=== PATIENT | male | born 1965 | race Caucasian/White ===

== ENCOUNTER → 2019-05-04 | Outpatient (CLI) | payer BC ==
--- NOTE | 2019-05-04 08:55 | KCIC ---
2 views of the skull 05/03/2019 INDICATION: Pre-MRI exam Discussion: No radiopaque foreign bodies involving the orbits are identified. No other acute osseous of normality is seen. No fluid levels in the sinuses are seen. IMPRESSION: No radiopaque/metallic foreign bodies involving the orbits. Electronically signed by: Rivas Champion MD (05/04/2019 8:51 AM) [id number]
--- NOTE | 2019-05-04 13:51 | KCIC ---
MR of the left shoulder HISTORY: Left shoulder pain, progressing over 6 months. TECHNIQUE: Routine multiplanar sequences are obtained. FINDINGS: Acromioclavicular joint is mildly degenerative. Deep linear articular surface tear of the supraspinatus tendon extends 90% across the rotator cuff attachment measures about 15 mm AP diameter. There is very small linear component which also extends to the bursal layer compatible with a nonretracted full-thickness component, series 7, image 9. More generalized rotator cuff tendinosis. Subscapularis tendon appears intact. No significant subdeltoid bursal fluid. No significant glenohumeral joint effusion. Small tear of the posterosuperior labrum. Biceps tendon is intact. Mild glenohumeral joint degenerative change. No acute fracture. No aggressive bone destruction. No acute soft tissue abnormality. Small axillary lymph node is incidentally noted, measures 12 mm short axis, most likely reactive. IMPRESSION: 1. Small linear full-thickness on retracted rotator cuff tear at the supraspinatus tendon attachment. 2. Small posterosuperior labral tear. Electronically signed by: Yimi Osborne MD (05/04/2019 1:48 PM) [id number]
== END | disposition home or self-care (01) ==
LOC: KCIC MRI 08:24
PROVIDERS: ATTEND Orthopaedic Surgery
DX: Z13.5 Encounter for screening for eye and ear disorders (principal); S43.492A Other sprain of left shoulder joint, initial encounter; S46.012A Strain of muscle(s) and tendon(s) of the rotator cuff of left shoulder, initial encounter; M19.012 Primary osteoarthritis, left shoulder; X58.XXXA Exposure to other specified factors, initial encounter; Y93.89 Activity, other specified; Y92.89 Other specified places as the place of occurrence of the external cause; Y99.8 Other external cause status
CPT/HCPCS: 70030; 73221